=== PATIENT | male | born 1960 | race Caucasian/White ===

== ENCOUNTER 2024-11-22 11:11 | Emergency (ER) | payer MEDICARE, OTHER, SELFPAY ==
[2024-11-22 11:13] VITALS: BP 157/99
[2024-11-22 11:43] VITALS: BMI 37.1
[2024-11-22 11:48] LABS: Urine Albumin Negative (Neg - Trace); Urine Bilirubin Negative (Negative); Urine Character Slightly Cloudy (Clear); Urine Color Straw; Urine Glucose Negative (Negative); Urine Ketone Negative (Negative); Urine Leukocyte Negative (Negative); Urine Nitrite Negative (Negative); Urine Occult Blood 1+ (Negative); Urine Specific Gravity 1.015 (<1.030); Urine Urobilinogen Negative (Neg - 1+)
[2024-11-22 11:52] LABS: Urine Bacteria Few (Negative); Urine Squamous Cell 0-2 /LPF (Few)
[2024-11-22 11:56] VITALS: BP 143/96
[2024-11-22 12:00] VITALS: BP 145/89
--- NOTE | 2024-11-22 12:02 | ED.GENMED ---
History of Present Illness
General
Chief Complaint: Abnormal Lab Value
Source: patient and spouse
Exam Limitations: none
Time Seen by Provider: 11/22/24 11:33
Nursing documentation reviewed up to this point in time: agreed with
History of Present Illness
History of Present Illness:
64-year-old male presenting the emergency department with concerns of abnormal kidney tests as an outpatient. This was done in [place] 2 days ago. Creatinine was 2.74 and BUN was 30 denies any specific symptoms. This was from routine labs that
he gets every 6 months. Patient does lisinopril and is recently been on valacyclovir for cold sore. Denies any chest pain shortness of breath changes in urination. No recent trauma.
Review of Systems
Review of Systems
Allergies reviewed?: Yes
All Other Systems: ROS reviewed and negative except as documented in HPI and ROS
Phy Exam
Physical Exam
Physical Exam:
GENERAL: Alert , in no apparent distress
EYE: pupils equal and reactive
NECK: Supple, no significant adenopathy.
ENT: o/p clr, mmm.
CARDIAC: Regular rate and rhythm .
LUNGS: Clear breath sounds bilaterally, no acute respiratory distress, no wheezes/rales/rhonchi
ABDOMEN: Soft, without focal tenderness, no r/g, no cvat
NEUROLOGICAL: Alert and oriented, no focal neuro deficits
SKIN: Warm and dry, skin intact.
MUSCULOSKELETAL: No edema, well perfused.
PSYCH: Normal and appropriate interaction.
Course
Orders/Labs/Results
Orders:
Orders
11/22/24 11:23
Body Fluid for Eosinophils Urgent
Date Specimen was Collected: 11/22/24
Time Specimen was Collected: 11:20
Comment: ADD
Urinalysis Reflex To Culture Urgent
Date Specimen was Collected: 11/22/24
Time Specimen was Collected: 11:20
Urine Microscopic Reflex Cult Urgent
11/22/24 12:00
CBC/With Diff [Complete Blood Count/With Diff] Urgent
CMP [Comprehensive Metabolic Panel] Urgent
11/22/24 12:36
0.9% Sodium Chloride 1000 ml [Nss] 1,000 ml IV BOLUS
11/22/24 13:05
Add On- LAB Urgent
Tests Added?: urine eosinophils
11/22/24 13:14
US Renal Only W/O Bladder Urgent
Comment:
Reason For Exam: abnml kidney function test
Abnormal Lab Results
11/22/24 11/22/24
11:23 12:00
RBC 4.10 L 10^6/uL
(4.70-6.10)
Hct 37.8 L %
(39.0-52.0)
MCH 32.4 H pg
(27.0-31.0)
Absolute Lymphs (auto) 1.0 L 10^3/uL
(1.2-3.4)
Absolute Monos (auto) 0.7 H 10^3/uL
(0.1-0.6)
Lymphocytes % 16.4 L %
(20.5-51.1)
Monocytes % 11.4 H %
(1.7-9.3)
BUN 36 H mg/dl
(9-20)
Creatinine 2.1 H mg/dL
(0.7-1.3)
Glucose 135 H mg/dl
(70-99)
Calcium 11.2 H mg/dl
(8.4-10.2)
Ur Occult Blood Reflex 1+ A
(Negative)
Urine RBC 3-6 A /HPF
(0-2)
Urine Bacteria (Reflex) Few A
(Negative)
11/22/24 12:00
11/22/24 12:00
Vital Signs
Initial and Last Documented VS:
Initial Vital Signs
Temp Pulse Resp BP Pulse Ox
97.4 F 110 16 157/99 98
11/22/24 11:13 11/22/24 11:13 11/22/24 11:13 11/22/24 11:13 11/22/24 11:13
Last Documented Vital Signs
Temp Pulse Resp BP Pulse Ox
97.4 F 86 16 153/84 98
11/22/24 11:13 11/22/24 14:00 11/22/24 11:13 11/22/24 13:00 11/22/24 14:00
MDM/Problems Addressed
MDM/Problems Addressed:
64-year-old male presenting to the emergency department with abnormal renal function test. Here vital signs normal patient no distress labs showing creatinine of 2.1 and BUN of 36 which is slightly better than his previous labs from a few days ago.
He was given a liter of fluid. Case was discussed with nephrology and recommend getting a renal ultrasound but otherwise can follow-up closely with repeated blood work in 2 days and close outpatient follow-up with nephrology and his primary care
doctor. Patient claims he be able to navigate this. Strict return precautions were discussed.
*Critical Care Note
Total Time (30-74mins, 75-104mins- exclusive of procedures): Not Applicable
ED Attending Note
-
Portions of this chart may have been created with voice recognition software.� Occasional wrong word or��sound alike� substitutions may have occurred due to the inherent limitations of voice recognition software.
Discharge Plan
Departure
Patient Disposition: Home (Routine Discharge)
Date of Disposition: 11/22/24
Time of Disposition: 16:23
Patient with high blood pressure during this ER visit?: No
Condition: Good
Covid-19: Not Applicable
Discharge Problem:
Elevated serum creatinine
Instructions: Renal function panel
Prescriptions:
No Action
trazodone 50 mg Tablet
50 mg PO HSPRN PRN (Reason: sleep)
cetirizine 10 mg Tablet
10 mg PO DAILY
atorvastatin 10 mg Tablet
10 mg PO DAILY
ibuprofen 800 mg Tablet
800 mg PO DAILYPRN PRN (Reason: mild pain)
Theragen Tablet
1 tab PO DAILY
valacyclovir 500 mg Tablet
2,000 mg PO .[id number] PRN (Reason: cold sore)
Rx Instructions:
take for 4 tablet bid for 3 when cold sore systems start, patient currently does not have any more last dose (11/22/24)
calcium polycarbophil [Fiber-Caps (ca polycarbophil)] 625 mg Tablet
3,125 mg PO BID
lisinopril-hydrochlorothiazide 10-12.5 mg Tablet
1 tab PO DAILY
glucosamine-chondroitin [Osteo Bi-Flex] 250-200 mg Tablet
2 tab PO DAILY
tadalafil 20 mg Tablet
10 mg PO DAILYPRN PRN (Reason: erectile dysfunction)
Referrals:
Elijah Manzo MD [Family Provider] -
Activity Restrictions/Additional Instructions:
You came to the emergency department today with concerns of elevated kidney function test. Here they were slightly improved from your previous levels. You had an ultrasound without emergent findings. Please help closely with nephrology as well as
your primary care doctor and have repeated labs in 2 days. Return for any worsening, new or concerning symptoms.
Interventions
Interventions:
*Risk Screen - Suicide Last Done: 11/22/24 12:00
*General Assessment Last Done: 11/22/24 11:18
*Neglect/Abuse Screening Last Done: 11/22/24 11:18
*ED- Fall Risk Assessment Last Done: 11/22/24 12:00
*ED COVID-19 Vaccine History Last Done: 11/22/24 12:00
Discharge Date and Time
Print Language: FAROESE
[2024-11-22 12:10] LABS: % Basophils 0.5 % (0-2); % Eosinophils 1.3 % (0-6); % Immature Granulocytes 0.3 % (0-0.5); % Lymphocytes 16.4 % (20.5-51.1); % Monocytes 11.4 % (1.7-9.3); % Neutrophils 70.1 % (42.2-75.2); Absolute Eosinophils 0.1 10^3/uL (0-0.7); Absolute Monocytes 0.7 10^3/uL (0.1-0.6); Absolute Neutrophils 4.2 10^3/uL (1.4-6.5); Hematocrit 37.8 % (39.0-52.0); Hemoglobin 13.3 g/dL (13.0-18.0); Mean Corp Hgb Conc. 35.2 g/dL (33.0-37.0); Mean Corpuscular Hgb 32.4 pg (27.0-31.0); Mean Corpuscular Volume 92.2 fL (80.0-94.0); Mean Platelet Volume 9.5 fL (7.4-10.4); Nucleated Red Blood Cells % 0 % (-); Platelet Count 256 10^3/uL (130-400); Red Cell Dist. Width 12.8 % (11.5-14.5)
[2024-11-22 12:31] LABS: ALT (SGPT) 44 U/L (0-50); AST (SGOT) 31 U/L (17-59); Albumin 4.9 g/dl (3.5-5.0); Alkaline Phosphatase 46 U/L (38-126); Blood Urea Nitrogen 36 mg/dl (9-20); Calcium 11.2 mg/dl (8.4-10.2); Carbon Dioxide 27 mmol/L (22-30); Chloride 105 mmol/L (98-107); Estimated Creatinine Clearance 33 ml/min; Glucose 135 mg/dl (70-99); Potassium 4.2 mmol/L (3.5-5.1); Sodium 143 mmol/L (135-145); Total Bilirubin 0.7 mg/dl (0.2-1.3); Total Protein 7.8 g/dl (6.3-8.2); eGFR 34.29
[2024-11-22] MEDS: NSS 1000 IV (12:54)
[2024-11-22 13:00] VITALS: BP 153/84
[2024-11-22 14:22] LABS: Body Fluid for Eosinophils No Eosinophils seen
== END 2024-11-22 16:38 | disposition home or self-care (01) ==
LOC: EMR 11:11
PROVIDERS: Emergency Medicine; Physician Assistant; EMERGENCY PHYSICIAN Emergency Medicine; FAMILY PHYSICIAN Family Medicine
DX: R94.4 Abnormal results of kidney function studies (principal)
CPT/HCPCS: 99284; 96360; 76775; 80053; 81003; 81015; 81099; 85025